=== PATIENT | male | born 1965 | race Caucasian/White ===

== ENCOUNTER 2017-01-07 02:15 | Observation (INO) | payer OTHER ==
[~2017-01-07] VITALS: Ht 185.4 cm; Wt 71.7 kg
[~2017-01-07 02:15] MED LIST: LEVOXYL25 MCG PO; PRINZIDE 20-121 EACH PO
[2017-01-07 03:06] LABS: HEMATOCRIT 33.7 % (38.0-50.0); MCH 35.7 PG (29.0-34.0); MCHC 36.5 G/DL (30.0-36.0); MCV 97.7 FL (86-99); MEAN PLAT.VOLUME 9.4 uM^3 (9.0-12.4); PLATELET COUNT 309 K/uL (156-360); RBC DIS.WIDTH-SD 46.4 % (39-53); RED BLOOD COUNT 3.45 M/uL (4.00-5.50); WHITE BLOOD COUNT 10.3 K/uL (4.1-10.2)
[2017-01-07 03:16] LABS: PROTHROMBIN TIME 10.6 (9.2-11.2)
[2017-01-07 03:22] LABS: CHLORIDE 94 mEq/L (99-109); POTASSIUM 3.5 mEq/L (3.7-5.4); SODIUM 130 mEq/L (136-147)
[2017-01-07 03:24] LABS: GLUCOSE 61 mg/dL (70-99)
[2017-01-07 03:25] LABS: ANION GAP 11 MEQ/L (2-14)
[2017-01-07 03:27] LABS: SERUM ETHYL ALCOHOL 329 mg/dL
[2017-01-07 03:28] LABS: GFR ESTIMATE (CALCULATED) > 59 mL/min/
[2017-01-07 03:29] LABS: UREA NITROGEN (BUN) 9 mg/dL (9-23)
[2017-01-07 03:33] LABS: TROP-I INTERPRETATION NEGATIVE; TROPONIN-I 0.01 ng/mL (0.0-0.30)
[2017-01-07 04:04] LABS: MAGNESIUM 2.1 mg/dL (1.3-2.7)
[2017-01-07 04:07] LABS: TOTAL BILIRUBIN 0.3 mg/dL (0.0-1.0)
[2017-01-07 04:08] LABS: ALKALINE PHOSPHATASE 77 IU/L (3-129)
[2017-01-07 04:11] LABS: DIRECT BILIRUBIN 0.1 mg/dL (0.0-0.3)
[2017-01-07 04:36] LABS: POINT-OF-CARE METER ID UU13113702
[2017-01-07 05:44] VITALS: BP 116/87
[2017-01-07 06:12] LABS: POINT-OF-CARE METER ID UU14162513; POINT-OF-CARE USER ID 609231305
[2017-01-07 06:27] LABS: POINT-OF-CARE METER ID UU14162513; POINT-OF-CARE USER ID 609231305
[2017-01-07 06:38] LABS: POINT-OF-CARE METER ID UU13113831
[2017-01-07 07:24] LABS: POINT-OF-CARE METER ID UU13113831
[2017-01-07 09:39] LABS: HDL CHOLESTEROL 48 MG/DL (Desirable>=40); LDL CHOLESTEROL 156 mg/dL (Desirable<100); NON-HDL CHOLESTEROL 200 mg/dL (Desirable<160); TOTAL CHOLESTEROL 248 mg/dL (Desirable<200); TRIGLYCERIDES 220 MG/DL (Normal: <150)
[2017-01-07 09:41] LABS: TROP-I INTERPRETATION NEGATIVE; TROPONIN-I 0.02 ng/mL (0.0-0.30)
[2017-01-07 09:54] VITALS: BP 103/69
[2017-01-07 10:20] LABS: POINT-OF-CARE METER ID UU13113700
[2017-01-07 11:20] LABS: GLUCOSE 59 mg/dL (70-99)
[2017-01-07 11:52] VITALS: BP 131/81
[2017-01-07 12:19] LABS: POINT-OF-CARE METER ID UU13113831
[2017-01-07 15:14] VITALS: BP 142/92
[2017-01-07 15:20] LABS: POINT-OF-CARE METER ID UU13113831
[2017-01-07 16:13] LABS: TROP-I INTERPRETATION NEGATIVE; TROPONIN-I 0.02 ng/mL (0.0-0.30)
[2017-01-07 17:17] LABS: POINT-OF-CARE METER ID UU13113831
[2017-01-07 18:24] LABS: POINT-OF-CARE METER ID UU13113831
[2017-01-07 20:00] VITALS: BP 140/91
[2017-01-07 22:07] LABS: POINT-OF-CARE METER ID UU13113831
[2017-01-08] VITALS: BP 133/93
[2017-01-08 03:56] LABS: POINT-OF-CARE METER ID UU14162513
[2017-01-08 04:13] VITALS: BP 147/97
[2017-01-08 05:44] LABS: BASOPHIL COUNT 0.1 K/uL (0-0.1); EOSINOPHIL (%) 1.2 % (0-5); EOSINOPHIL COUNT 0.1 K/uL (0-0.3); HEMATOCRIT 35.8 % (38.0-50.0); IMMATURE GRANULOCYTE (%) 0.5 % (0.0-0.7); INSTRUMENT ABS NEUTROPHIL CT 5.5 K/uL; LYMPHOCYTE COUNT 2.2 K/uL (1.0-2.8); MCH 34.7 PG (29.0-34.0); MCHC 35.2 G/DL (30.0-36.0); MCV 98.6 FL (86-99); MEAN PLAT.VOLUME 9.5 uM^3 (9.0-12.4); MONOCYTE (%) 7.4 % (3-12); MONOCYTE COUNT 0.6 K/uL (0-0.8); NEUTROPHIL (%) 64.5 % (45-76); NEUTROPHIL COUNT 5.5 K/uL (1.8-6.4); PLATELET COUNT 296 K/uL (156-360); RBC DIS.WIDTH-CV 13.5 % (11.8-14.6); RBC DIS.WIDTH-SD 49.1 % (39-53); RED BLOOD COUNT 3.63 M/uL (4.00-5.50); WHITE BLOOD COUNT 8.6 K/uL (4.1-10.2)
[2017-01-08 06:13] LABS: ANION GAP 5 MEQ/L (2-14); CHLORIDE 98 MEQ/L (99-109); GFR ESTIMATE (CALCULATED) > 59 mL/min/; GLUCOSE 74 mg/dL (70-99); SAMPLE HEMOLYSIS CHECK 0; SAMPLE ICTERIC CHECK 0; SAMPLE LIPEMIA CHECK 0; SODIUM 132 MEQ/L (136-147); UREA NITROGEN (BUN) 13 mg/dL (9-23)
[2017-01-08 06:24] LABS: POTASSIUM 4.7 MEQ/L (3.7-5.4)
[2017-01-08 06:46] LABS: POINT-OF-CARE METER ID UU13113831
[2017-01-08] MEDS ORDERED: ASPIR-LOW81 MG PO (08:18)
[2017-01-08] MEDS ORDERED: ATORVASTATIN CA80 MG PO (08:18)
[2017-01-08] MEDS ORDERED: LEVOTHYROXINE25 MCG PO (08:18)
[2017-01-08 09:51] VITALS: BP 124/80
[2017-01-08 12:51] LABS: POINT-OF-CARE METER ID UU13113831
[2017-01-08 12:51] LABS: POINT-OF-CARE METER ID UU13113700
== END 2017-01-08 11:40 | disposition home or self-care (01) ==
LOC: EME 02:15 → EDOF 03:54 → 5WEST 03:54 → EDOF 03:54 → 5WEST 05:26
PROVIDERS: Emergency Medicine; Hospitalist; Internal Medicine; Physician Assistant Medical; Student in an Organized Health Care Education/Training Program
DX: R07.81 Pleurodynia (principal); R94.31 Abnormal electrocardiogram [ECG] [EKG]; F10.220 Alcohol dependence with intoxication, uncomplicated; Y90.8 Blood alcohol level of 240 mg/100 ml or more; E16.2 Hypoglycemia, unspecified; E87.8 Other disorders of electrolyte and fluid balance, not elsewhere classified; E78.2 Mixed hyperlipidemia; D64.9 Anemia, unspecified; E03.9 Hypothyroidism, unspecified; G89.29 Other chronic pain; I10 Essential (primary) hypertension; F17.210 Nicotine dependence, cigarettes, uncomplicated; Z82.49 Family history of ischemic heart disease and other diseases of the circulatory system
CPT/HCPCS: 71020; 80048; 80061; 80076; 81003; 82948; 83735; 84439; 84443; 84484; 84999; 85025; 85027; 85610; 85730; 93005; 99281; 99285; G0378; G0480; J1885; J2270; J3411; J3475; J3480; J7030; S0028

== ENCOUNTER 2017-01-22 00:43 | Emergency (ER) | payer OTHER ==
[~2017-01-22] VITALS: Ht 185.4 cm; Wt 72.2 kg
[~2017-01-22 00:43] MED LIST changes: +ASPIR-LOW81 MG PO; +ATORVASTATIN CA80 MG PO; +LEVOTHYROXINE25 MCG PO
[2017-01-22 01:25] LABS: HEMATOCRIT 32.9 % (38.0-50.0); MCH 34.7 PG (29.0-34.0); MCHC 35.6 G/DL (30.0-36.0); MCV 97.6 FL (86-99); MEAN PLAT.VOLUME 9.1 uM^3 (9.0-12.4); PLATELET COUNT 308 K/uL (156-360); RBC DIS.WIDTH-CV 13.2 % (11.8-14.6); RBC DIS.WIDTH-SD 47.1 % (39-53); RED BLOOD COUNT 3.37 M/uL (4.00-5.50); WHITE BLOOD COUNT 10.3 K/uL (4.1-10.2)
[2017-01-22 01:36] LABS: CHLORIDE 93 mEq/L (99-109); POTASSIUM 3.2 mEq/L (3.7-5.4); SODIUM 130 mEq/L (136-147)
[2017-01-22 01:39] LABS: ANION GAP 15 MEQ/L (2-14)
[2017-01-22 01:41] LABS: SERUM ETHYL ALCOHOL 323 mg/dL
[2017-01-22 01:42] LABS: GFR ESTIMATE (CALCULATED) > 59 mL/min/; UREA NITROGEN (BUN) 7 mg/dL (9-23)
[2017-01-22 01:47] LABS: TROP-I INTERPRETATION NEGATIVE; TROPONIN-I < 0.01 ng/mL (0.0-0.30)
[2017-01-22 02:04] LABS: GLUCOSE 60 mg/dL (70-99)
[2017-01-22] MEDS ORDERED: ERYTHROMYC1 APPLICAT BOTH EYES (04:52)
[2017-01-22 09:34] VITALS: BP 140/98
[2017-01-22 09:40] LABS: POINT-OF-CARE METER ID UU13113702
[2017-01-22 09:40] LABS: POINT-OF-CARE METER ID UU13113702
[2017-01-22 09:40] LABS: POINT-OF-CARE METER ID UU13113702
== END 2017-01-22 09:49 | disposition home or self-care (01) ==
LOC: EME → EDBD 00:43 → EME 00:43
PROVIDERS: Emergency Medicine
DX: F10.129 Alcohol abuse with intoxication, unspecified (principal); Y90.8 Blood alcohol level of 240 mg/100 ml or more; V48.0XXA Car driver injured in noncollision transport accident in nontraffic accident, initial encounter; Y92.488 Other paved roadways as the place of occurrence of the external cause; S00.81XA Abrasion of other part of head, initial encounter; S10.91XA Abrasion of unspecified part of neck, initial encounter; R07.89 Other chest pain; H57.11 Ocular pain, right eye; K21.9 Gastro-esophageal reflux disease without esophagitis; I10 Essential (primary) hypertension; F17.200 Nicotine dependence, unspecified, uncomplicated
CPT/HCPCS: 70450; 71020; 80048; 82948; 84484; 85027; 93005; 99281; 99284; G0480

== ENCOUNTER 2017-04-10 13:29 | Inpatient (IN) | payer OTHER ==
[2017-04-10] VITALS (11 sets, daily range): BP systolic 87–142; BP diastolic 53–94
[~2017-04-10] VITALS: Ht 185.4 cm; Wt 65.6 kg
[~2017-04-10 13:29] MED LIST changes: +ERYTHROMYC1 APPLICAT BOTH EYES
[2017-04-10 13:50] LABS: BASOPHIL COUNT 0.1 K/uL (0-0.1); EOSINOPHIL (%) 2.1 % (0-5); EOSINOPHIL COUNT 0.2 K/uL (0-0.3); HEMATOCRIT 33.5 % (38.0-50.0); IMMATURE GRANULOCYTE (%) 0.4 % (0.0-0.7); INSTRUMENT ABS NEUTROPHIL CT 6.2 K/uL; LYMPHOCYTE COUNT 3.2 K/uL (1.0-2.8); MCH 33.4 PG (29.0-34.0); MCHC 34.9 G/DL (30.0-36.0); MCV 95.7 FL (86-99); MEAN PLAT.VOLUME 9.2 uM^3 (9.0-12.4); MONOCYTE (%) 6.9 % (3-12); MONOCYTE COUNT 0.7 K/uL (0-0.8); NEUTROPHIL COUNT 6.2 K/uL (1.8-6.4); PLATELET COUNT 414 K/uL (156-360); RBC DIS.WIDTH-CV 12.1 % (11.8-14.6); RBC DIS.WIDTH-SD 42.8 % (39-53); WHITE BLOOD COUNT 10.5 K/uL (4.1-10.2)
[2017-04-10 14:00] LABS: AMYLASE 49 IU/L (1-118); CHLORIDE 89 mEq/L (99-109); SODIUM 123 mEq/L (136-147)
[2017-04-10 14:02] LABS: GLUCOSE 67 mg/dL (70-99)
[2017-04-10 14:03] LABS: ANION GAP 14 MEQ/L (2-14)
[2017-04-10 14:05] LABS: SERUM ETHYL ALCOHOL 84 mg/dL
[2017-04-10 14:06] LABS: GFR ESTIMATE (CALCULATED) > 59 mL/min/
[2017-04-10 14:07] LABS: UREA NITROGEN (BUN) 7 mg/dL (9-23)
[2017-04-10 14:08] LABS: PROTHROMBIN TIME 11.1 SEC (10.2-12.9)
[2017-04-10 14:09] LABS: LIPASE 24 U/L (1.0-51.0); TROP-I INTERPRETATION NEGATIVE; TROPONIN-I < 0.01 ng/mL (0.0-0.30)
[2017-04-10 14:11] LABS: PTT 35.9 SEC (25-37)
[2017-04-10 20:02] LABS: BASOPHIL COUNT 0.1 K/uL (0-0.1); EOSINOPHIL (%) 1.5 % (0-5); EOSINOPHIL COUNT 0.2 K/uL (0-0.3); HEMATOCRIT 33.8 % (38.0-50.0); IMMATURE GRANULOCYTE (%) 0.5 % (0.0-0.7); IMMATURE GRANULOCYTE COUNT 0.1 K/uL; INSTRUMENT ABS NEUTROPHIL CT 9.3 K/uL; LYMPHOCYTE COUNT 2.3 K/uL (1.0-2.8); MCH 33.7 PG (29.0-34.0); MCHC 34.6 G/DL (30.0-36.0); MCV 97.4 FL (86-99); MEAN PLAT.VOLUME 9.3 uM^3 (9.0-12.4); MONOCYTE (%) 6.7 % (3-12); MONOCYTE COUNT 0.9 K/uL (0-0.8); NEUTROPHIL (%) 72.7 % (45-76); NEUTROPHIL COUNT 9.3 K/uL (1.8-6.4); PLATELET COUNT 391 K/uL (156-360); RBC DIS.WIDTH-CV 12.5 % (11.8-14.6); RBC DIS.WIDTH-SD 44.8 % (39-53); RED BLOOD COUNT 3.47 M/uL (4.00-5.50); WHITE BLOOD COUNT 12.8 K/uL (4.1-10.2)
[2017-04-10 20:15] LABS: ANION GAP 9 MEQ/L (2-14); CHLORIDE 93 MEQ/L (99-109); DIRECT BILIRUBIN 0.1 mg/dL (0.0-0.3); SAMPLE HEMOLYSIS CHECK 0; SAMPLE ICTERIC CHECK 0; SAMPLE LIPEMIA CHECK 0; SODIUM 124 MEQ/L (136-147); TOTAL BILIRUBIN 0.4 MG/DL (0.0-1.0)
[2017-04-10 20:21] LABS: ALKALINE PHOSPHATASE 52 IU/L (3-129); GFR ESTIMATE (CALCULATED) > 59 mL/min/; GLUCOSE 80 mg/dL (70-99); UREA NITROGEN (BUN) 7 mg/dL (9-23)
[2017-04-10 20:24] LABS: METH RESISTANT S AUREUS PCR NEGATIVE (NEGATIVE)
[2017-04-10 20:25] LABS: PROBE CHECK PASS; SPECIMEN PROCESSING CONTROL PASS
[2017-04-10 20:44] LABS: MAGNESIUM 1.8 mg/dl (1.3-2.7)
[2017-04-11] VITALS (17 sets, daily range): BP systolic 123–192; BP diastolic 40–117
[2017-04-11 02:05] LABS: CREATINE KINASE 528 IU/L (1-294); TOTAL CK 528 IU/L (1-294)
[2017-04-11 02:08] LABS: TROP-I INTERPRETATION POSITIVE
[2017-04-11 02:09] LABS: TROPONIN-I 12.58 ng/mL (0.0-0.30)
[2017-04-11 02:12] LABS: CK-MB 21.6 ng/mL (0.0-4.9)
[2017-04-11 05:52] LABS: BASOPHIL COUNT 0.1 K/uL (0-0.1); EOSINOPHIL (%) 1.9 % (0-5); EOSINOPHIL COUNT 0.2 K/uL (0-0.3); HEMATOCRIT 28.4 % (38.0-50.0); IMMATURE GRANULOCYTE (%) 0.6 % (0.0-0.7); IMMATURE GRANULOCYTE COUNT 0.1 K/uL; INSTRUMENT ABS NEUTROPHIL CT 5.9 K/uL; LYMPHOCYTE COUNT 1.6 K/uL (1.0-2.8); MCH 35.2 PG (29.0-34.0); MCHC 35.2 G/DL (30.0-36.0); MEAN PLAT.VOLUME 9.7 uM^3 (9.0-12.4); MONOCYTE (%) 7.2 % (3-12); MONOCYTE COUNT 0.6 K/uL (0-0.8); NEUTROPHIL (%) 70.2 % (45-76); NEUTROPHIL COUNT 5.9 K/uL (1.8-6.4); PLATELET COUNT 313 K/uL (156-360); RBC DIS.WIDTH-CV 12.7 % (11.8-14.6); RBC DIS.WIDTH-SD 46.5 % (39-53); RED BLOOD COUNT 2.84 M/uL (4.00-5.50); WHITE BLOOD COUNT 8.4 K/uL (4.1-10.2)
[2017-04-11 06:03] LABS: TROP-I INTERPRETATION POSITIVE; TROPONIN-I 8.62 ng/mL (0.0-0.30)
[2017-04-11 06:24] LABS: ANION GAP 8 MEQ/L (2-14); CHLORIDE 99 MEQ/L (99-109); CREATINE KINASE 365 IU/L (1-294); GFR ESTIMATE (CALCULATED) > 59 mL/min/; GLUCOSE 63 mg/dL (70-99); HDL CHOLESTEROL 41 MG/DL (Desirable>=40); LDL CHOLESTEROL 66 mg/dL (Desirable<100); NON-HDL CHOLESTEROL 81 mg/dL (Desirable<160); POTASSIUM 4.2 MEQ/L (3.7-5.4); SAMPLE HEMOLYSIS CHECK 0; SAMPLE ICTERIC CHECK 0; SAMPLE LIPEMIA CHECK 0; SODIUM 128 MEQ/L (136-147); TOTAL CHOLESTEROL 122 mg/dL (Desirable<200); TOTAL CK 365 IU/L (1-294); TRIGLYCERIDES 73 MG/DL (Normal: <150); UREA NITROGEN (BUN) 10 mg/dL (9-23)
[2017-04-11 07:39] LABS: CK-MB 23.4 ng/mL (0.0-4.9)
[2017-04-11 07:57] LABS: Estimated Average Glucose 97 mg/dL (70-123)
[2017-04-11 08:54] LABS: ANION GAP 8 MEQ/L (2-14); CHLORIDE 97 MEQ/L (99-109); GFR ESTIMATE (CALCULATED) > 59 mL/min/; GLUCOSE 73 mg/dL (70-99); POTASSIUM 4.7 MEQ/L (3.7-5.4); SAMPLE HEMOLYSIS CHECK 0; SAMPLE ICTERIC CHECK 0; SAMPLE LIPEMIA CHECK 0; SODIUM 128 MEQ/L (136-147); UREA NITROGEN (BUN) 9 mg/dL (9-23)
[2017-04-11 11:00] LABS: HBSG INDEX 0.23; HPCA INDEX 0.09
[2017-04-11 11:02] LABS: ANTI-HEPATITIS A VIRUS (IGM) Nonreactive; ANTI-HEPATITIS B CORE (IGM) Nonreactive; HAV INDEX 0.27; HBC IgM INDEX 0.06
[2017-04-11 12:54] LABS: TROP-I INTERPRETATION POSITIVE; TROPONIN-I 6.16 ng/mL (0.0-0.30)
[2017-04-11 13:01] LABS: ANION GAP 6 MEQ/L (2-14); CHLORIDE 99 MEQ/L (99-109); CREATINE KINASE 310 IU/L (1-294); GFR ESTIMATE (CALCULATED) > 59 mL/min/; GLUCOSE 59 mg/dL (70-99); POTASSIUM 4.2 MEQ/L (3.7-5.4); SAMPLE HEMOLYSIS CHECK 0; SAMPLE ICTERIC CHECK 0; SAMPLE LIPEMIA CHECK 0; SODIUM 130 MEQ/L (136-147); TOTAL CK 310 IU/L (1-294); UREA NITROGEN (BUN) 10 mg/dL (9-23)
[2017-04-11 16:10] LABS: ANION GAP 6 MEQ/L (2-14); CHLORIDE 98 MEQ/L (99-109); GFR ESTIMATE (CALCULATED) > 59 mL/min/; GLUCOSE 42 mg/dL (70-99); POTASSIUM 4.7 MEQ/L (3.7-5.4); SAMPLE HEMOLYSIS CHECK 0; SAMPLE ICTERIC CHECK 0; SAMPLE LIPEMIA CHECK 0; SODIUM 129 MEQ/L (136-147); UREA NITROGEN (BUN) 11 mg/dL (9-23)
[2017-04-11 20:26] LABS: ANION GAP 7 MEQ/L (2-14); CHLORIDE 99 MEQ/L (99-109); GFR ESTIMATE (CALCULATED) > 59 mL/min/; GLUCOSE 112 mg/dL (70-99); POTASSIUM 4.3 MEQ/L (3.7-5.4); SAMPLE HEMOLYSIS CHECK 0; SAMPLE ICTERIC CHECK 0; SAMPLE LIPEMIA CHECK 0; SODIUM 129 MEQ/L (136-147); UREA NITROGEN (BUN) 12 mg/dL (9-23)
[2017-04-12] VITALS: BP 130/83
[2017-04-12 00:04] LABS: POTASSIUM 4.3 mEq/L (3.7-5.4); SODIUM 130 mEq/L (136-147)
[2017-04-12 00:05] LABS: CHLORIDE 101 mEq/L (99-109)
[2017-04-12 00:06] LABS: GLUCOSE 88 mg/dL (70-99)
[2017-04-12 00:07] LABS: ANION GAP 7 MEQ/L (2-14)
[2017-04-12 00:10] LABS: GFR ESTIMATE (CALCULATED) > 59 mL/min/; UREA NITROGEN (BUN) 12 mg/dL (9-23)
[2017-04-12 04:00] VITALS: BP 124/82
[2017-04-12 05:04] LABS: CHLORIDE 103 mEq/L (99-109); POTASSIUM 4.5 mEq/L (3.7-5.4); SODIUM 130 mEq/L (136-147)
[2017-04-12 05:06] LABS: GLUCOSE 75 mg/dL (70-99)
[2017-04-12 05:07] LABS: ANION GAP 5 MEQ/L (2-14)
[2017-04-12 05:09] LABS: GFR ESTIMATE (CALCULATED) > 59 mL/min/
[2017-04-12 05:10] LABS: UREA NITROGEN (BUN) 10 mg/dL (9-23)
[2017-04-12 08:00] VITALS: BP 103/76
[2017-04-12 12:00] VITALS: BP 103/76
[2017-04-12] MEDS ORDERED: LISINOPRIL5 MG PO (14:52)
[2017-04-12] MEDS ORDERED: MULTIVITAMIN1 EAC2 PO (14:52)
[2017-04-12] MEDS ORDERED: BRILINTA90 MG PO (14:52)
[2017-04-12] MEDS ORDERED: LOPRESSOR25 MG PO (14:52)
[2017-04-12] MEDS ORDERED: LEVOTHYROXINE50 MCG PO (14:52)
[2017-04-12] MEDS ORDERED: NICOTINE PATCH1 EAC1 TD (14:52)
[2017-04-12] MEDS ORDERED: CHLORDIAZEPOXID25 MG PO (14:52)
[2017-04-12] MEDS ORDERED: NITROSTAT0.4 MG SL (14:52)
[2017-04-12] MEDS ORDERED: FOLIC ACID1 MG PO (14:52)
[2017-04-12] MEDS ORDERED: THIAMINE HCL100 MG PO (14:52)
== END 2017-04-12 15:48 | disposition home or self-care (01) | DRG 248 ==
LOC: EME 13:29 → CATH 14:06 → EME 14:06 → 4WEST 15:58 → 2SOUTH 15:58 → ENRESERV 16:04 → 2SOUTH 16:15 → ENRESERV 16:17 → 4WEST 16:24 → ENRESERV 04-11 13:57 → CANRESERV 04-11 13:57 → 4WEST 04-11 18:16
PROVIDERS: Emergency Medicine; Internal Medicine Cardiovascular Disease; Internal Medicine Critical Care Medicine
DX: I21.19 ST elevation (STEMI) myocardial infarction involving other coronary artery of inferior wall (principal); E87.1 Hypo-osmolality and hyponatremia; E78.2 Mixed hyperlipidemia; E03.9 Hypothyroidism, unspecified; Z86.73 Personal history of transient ischemic attack (TIA), and cerebral infarction without residual deficits; I10 Essential (primary) hypertension; F17.200 Nicotine dependence, unspecified, uncomplicated; F10.220 Alcohol dependence with intoxication, uncomplicated; Y90.4 Blood alcohol level of 80-99 mg/100 ml; D64.9 Anemia, unspecified
CPT/HCPCS: 80048; 80048 91; 80061; 80074; 80076; 81003; 82024 90; 82150; 82550; 82550 91; 82553; 83036; 83690; 83735; 84439; 84443; 84484; 85025; 85025 91; 85347; 85610; 85730; 86850; 86900; 86901; 87641; 90686; 93005; 99281; 99284; C1725; C1769; C1874; C1887; G0480; J0461; J1200; J1644; J1650; J2250; J2405; J3010; J3246; J3411; J3475; J7030

== ENCOUNTER 2017-07-10 03:47 | Inpatient (IN) | payer OTHER ==
[~2017-07-10] VITALS: Ht 185.4 cm; Wt 66.1 kg
[~2017-07-10 03:47] MED LIST changes: +BRILINTA90 MG PO; +CHLORDIAZEPOXID25 MG PO; +FOLIC ACID1 MG PO; +LEVOTHYROXINE50 MCG PO; +LISINOPRIL5 MG PO; +LOPRESSOR25 MG PO; +MULTIVITAMIN1 EAC2 PO; +NICOTINE PATCH1 EAC1 TD; +NITROSTAT0.4 MG SL; +THIAMINE HCL100 MG PO
[2017-07-10 04:11] LABS: BASOPHIL (%) 0.7 % (0-1); BASOPHIL COUNT 0.1 K/uL (0-0.1); EOSINOPHIL (%) 3.9 % (0-5); EOSINOPHIL COUNT 0.5 K/uL (0-0.3); HEMATOCRIT 35.5 % (38.0-50.0); HEMOGLOBIN 12.3 G/DL (12.5-16.6); IMMATURE GRANULOCYTE (%) 0.2 % (0.0-0.7); LYMPHOCYTE (%) 27.9 % (15-42); LYMPHOCYTE COUNT 3.4 K/uL (1.0-2.8); MCH 32.5 PG (29.0-34.0); MCHC 34.6 G/DL (30.0-36.0); MCV 93.9 FL (86-99); MONOCYTE (%) 9.2 % (3-12); MONOCYTE COUNT 1.1 K/uL (0-0.8); NEUTROPHIL (%) 58.1 % (45-76); NEUTROPHIL COUNT 7.1 K/uL (1.8-6.4); PLATELET COUNT 422 K/uL (156-360); RBC DIS.WIDTH-CV 12.8 % (11.8-14.6); RBC DIS.WIDTH-SD 44.4 % (39-53); RED BLOOD COUNT 3.78 M/uL (4.00-5.50); WHITE BLOOD COUNT 12.2 K/uL (4.1-10.2)
[2017-07-10 04:24] LABS: INTER. NORMALIZED RATIO 0.9
[2017-07-10 04:25] LABS: AMYLASE 51 IU/L (1-118); CHLORIDE 101 mEq/L (99-109); POTASSIUM 4.1 mEq/L (3.7-5.4); SODIUM 134 mEq/L (136-147)
[2017-07-10 04:27] LABS: GLUCOSE 100 mg/dL (70-99); PTT 32.2 SEC (25-37)
[2017-07-10 04:30] LABS: CREATININE 0.8 mg/dL (0.6-1.3); GFR ESTIMATE (CALCULATED) > 59 mL/min/ (58.99-99999); SERUM ETHYL ALCOHOL < 10 mg/dL
[2017-07-10 04:31] LABS: UREA NITROGEN (BUN) 14 mg/dL (9-23)
[2017-07-10 04:33] LABS: LIPASE 29 U/L (1.0-51.0)
[2017-07-10 04:36] LABS: TROP-I INTERPRETATION POSITIVE
[2017-07-10 04:37] LABS: TROPONIN-I 1.12 ng/mL (0.0-0.30)
[2017-07-10 10:00] VITALS: BP 88/73
[2017-07-10 11:00] VITALS: BP 140/70; BP 90/72
[2017-07-10 12:53] LABS: CREATINE KINASE 299 IU/L (1-294); TOTAL CK 299 IU/L (1-294)
[2017-07-10 12:59] LABS: TROP-I INTERPRETATION POSITIVE
[2017-07-10 13:00] LABS: CK-MB 23.7 ng/mL (0.0-4.9); CKMB RELATIVE INDEX 7.9 (0.0-3.9)
[2017-07-10 13:01] LABS: TROPONIN-I 4.14 ng/mL (0.0-0.30)
[2017-07-10 14:00] VITALS: BP 104/80
[2017-07-10 18:43] LABS: TROP-I INTERPRETATION POSITIVE; TROPONIN-I 7.78 ng/mL (0.0-0.30)
[2017-07-10 18:45] LABS: CREATINE KINASE 552 IU/L (1-294); TOTAL CK 552 IU/L (1-294)
[2017-07-10 20:00] VITALS: BP 113/70
[2017-07-10 20:03] LABS: BASOPHIL (%) 0.4 % (0-1); BASOPHIL COUNT 0.1 K/uL (0-0.1); EOSINOPHIL (%) 0.7 % (0-5); EOSINOPHIL COUNT 0.1 K/uL (0-0.3); HEMATOCRIT 33.8 % (38.0-50.0); HEMOGLOBIN 11.6 G/DL (12.5-16.6); IMMATURE GRANULOCYTE (%) 0.3 % (0.0-0.7); LYMPHOCYTE (%) 12.3 % (15-42); LYMPHOCYTE COUNT 1.7 K/uL (1.0-2.8); MCH 31.8 PG (29.0-34.0); MCHC 34.3 G/DL (30.0-36.0); MCV 92.6 FL (86-99); MONOCYTE (%) 9.7 % (3-12); MONOCYTE COUNT 1.3 K/uL (0-0.8); NEUTROPHIL (%) 76.6 % (45-76); NEUTROPHIL COUNT 10.3 K/uL (1.8-6.4); PLATELET COUNT 411 K/uL (156-360); RBC DIS.WIDTH-CV 13.1 % (11.8-14.6); RBC DIS.WIDTH-SD 44.5 % (39-53); RED BLOOD COUNT 3.65 M/uL (4.00-5.50); WHITE BLOOD COUNT 13.5 K/uL (4.1-10.2)
[2017-07-10 20:53] LABS: CK-MB 70.2 ng/mL (0.0-4.9); CKMB RELATIVE INDEX 12.7 (0.0-3.9)
[2017-07-11 01:08] LABS: TROP-I INTERPRETATION POSITIVE; TROPONIN-I 9.87 ng/mL (0.0-0.30)
[2017-07-11 01:09] LABS: CREATINE KINASE 956 IU/L (1-294); TOTAL CK 956 IU/L (1-294)
[2017-07-11 01:19] LABS: CK-MB 93.4 ng/mL (0.0-4.9); CKMB RELATIVE INDEX 9.8 (0.0-3.9)
[2017-07-11 05:53] LABS: BASOPHIL (%) 0.5 % (0-1); BASOPHIL COUNT 0.1 K/uL (0-0.1); EOSINOPHIL (%) 0.8 % (0-5); EOSINOPHIL COUNT 0.1 K/uL (0-0.3); HEMATOCRIT 32.7 % (38.0-50.0); HEMOGLOBIN 11.3 G/DL (12.5-16.6); IMMATURE GRANULOCYTE (%) 0.5 % (0.0-0.7); LYMPHOCYTE (%) 9.5 % (15-42); LYMPHOCYTE COUNT 1.3 K/uL (1.0-2.8); MCH 32.7 PG (29.0-34.0); MCHC 34.6 G/DL (30.0-36.0); MCV 94.5 FL (86-99); MONOCYTE COUNT 1.2 K/uL (0-0.8); NEUTROPHIL (%) 79.7 % (45-76); NEUTROPHIL COUNT 10.6 K/uL (1.8-6.4); PLATELET COUNT 334 K/uL (156-360); RBC DIS.WIDTH-CV 13.3 % (11.8-14.6); RED BLOOD COUNT 3.46 M/uL (4.00-5.50); WHITE BLOOD COUNT 13.3 K/uL (4.1-10.2)
[2017-07-11 06:17] LABS: CHLORIDE 102 MEQ/L (99-109); CREATININE 0.9 MG/DL (0.6-1.3); GFR ESTIMATE (CALCULATED) > 59 mL/min/ (58.99-99999); GLUCOSE 103 mg/dL (70-99); HDL CHOLESTEROL 39 MG/DL (Desirable>=40); LDL CHOLESTEROL 79 mg/dL (Desirable<100); NON-HDL CHOLESTEROL 93 mg/dL (Desirable<160); POTASSIUM 4.4 MEQ/L (3.7-5.4); SODIUM 132 MEQ/L (136-147); TOTAL CHOLESTEROL 132 mg/dL (Desirable<200); TRIGLYCERIDES 68 MG/DL (Normal: <150); UREA NITROGEN (BUN) 11 mg/dL (9-23)
[2017-07-11 06:54] LABS: HEMOGLOBIN A1c (GLYCOHEMOGLOB) 5.7 % HGB (Below 5.7)
[2017-07-11 12:00] VITALS: BP 136/77
[2017-07-11] MEDS ORDERED: SYNTHROID75 MCG PO (13:05)
[2017-07-11] MEDS ORDERED: PRINIVIL10 MG PO (13:05)
[2017-07-11] MEDS ORDERED: PLAVIX75 MG PO (13:06)
[2017-07-11] MEDS ORDERED: FLOMAX0.4 MG PO (13:06)
== END 2017-07-11 16:13 | disposition short-term general hospital (02) | DRG 271 ==
LOC: EME 03:47 → ENRESERV 04:21 → EME 04:28 → CATH 04:28 → ENRESERV 04:42 → 4WEST 08:56
PROVIDERS: Emergency Medicine; Internal Medicine Cardiovascular Disease
DX: I21.02 ST elevation (STEMI) myocardial infarction involving left anterior descending coronary artery (principal); T82.855A Stenosis of coronary artery stent, initial encounter; Y83.1 Surgical operation with implant of artificial internal device as the cause of abnormal reaction of the patient, or of later complication, without mention of misadventure at the time of the procedure; I25.10 Atherosclerotic heart disease of native coronary artery without angina pectoris; I25.84 Coronary atherosclerosis due to calcified coronary lesion; I10 Essential (primary) hypertension; E78.5 Hyperlipidemia, unspecified; E03.9 Hypothyroidism, unspecified; E87.1 Hypo-osmolality and hyponatremia; F10.20 Alcohol dependence, uncomplicated; F17.200 Nicotine dependence, unspecified, uncomplicated; I25.2 Old myocardial infarction; K21.9 Gastro-esophageal reflux disease without esophagitis; Z82.49 Family history of ischemic heart disease and other diseases of the circulatory system
CPT/HCPCS: 71045; 80048; 80061; 81003; 82150; 82550; 82550 91; 82553; 83036; 83690; 84484; 85025; 85025 91; 85347; 85610; 85730; 86850; 86900; 86901; 87641; 93005; 94799; 99281; 99285; C1725; C1769; C1874; C1887; C1894; G0480; J0360; J1644; J2250; J2270; J2405; J3010; J3246; J7030